=== PATIENT | female | born 2000 | race Caucasian/White ===

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

== ENCOUNTER 2023-03-12 13:25 | Emergency (ER) | payer MEDICAID ==
[~2023-03-12] VITALS: Ht 154.9 cm; Wt 81.1 kg
[2023-03-12 14:06] VITALS: BP 151/83; PULSE 93; RESP 16; TEMP 98.5; O2SAT 99
[2023-03-12] MEDS ORDERED: IBUP-1454 PO (14:18)
== END 2023-03-12 14:25 | disposition home or self-care (01) ==
LOC: ER 13:25
DX: S63.91XA Sprain of unspecified part of right wrist and hand, initial encounter (principal); J45.909 Unspecified asthma, uncomplicated; K21.9 Gastro-esophageal reflux disease without esophagitis; Z88.2 Allergy status to sulfonamides; X58.XXXA Exposure to other specified factors, initial encounter; Y93.54 Activity, bowling; Y92.89 Other specified places as the place of occurrence of the external cause; Y99.8 Other external cause status
CPT/HCPCS: 73130

== ENCOUNTER 2024-03-08 12:02 | Emergency (ER) | payer MEDICAID ==
[~2024-03-08] VITALS: Ht 162.6 cm; Wt 98.2 kg
[~2024-03-08 12:02] MED LIST: IBUP-1454 PO
[2024-03-08 13:28] VITALS: BP 136/78; PULSE 98; RESP 16; TEMP 98.9; O2SAT 98
[2024-03-08] MEDS ORDERED: IBUP-1456 PO (13:46)
== END 2024-03-08 13:46 | disposition home or self-care (01) ==
LOC: ER 12:02
DX: S93.402A Sprain of unspecified ligament of left ankle, initial encounter (principal); J45.909 Unspecified asthma, uncomplicated; K21.9 Gastro-esophageal reflux disease without esophagitis; Z88.2 Allergy status to sulfonamides; X58.XXXA Exposure to other specified factors, initial encounter; Y93.01 Activity, walking, marching and hiking; Y92.89 Other specified places as the place of occurrence of the external cause; Y99.8 Other external cause status
CPT/HCPCS: 73610